=== PATIENT | male | born 1995 | race Caucasian/White ===

== ENCOUNTER 2016-09-02 14:23 | Emergency (ER) | payer OTHER ==
[~2016-09-02] VITALS: Ht 170.2 cm; Wt 75.2 kg
[~2016-09-02 14:23] MED LIST: ACET325T33 PO; DICY10CA60 PO; IBUP400T22 PO; ONDA4TAB8 PO
[2016-09-02 14:26] VITALS: Ht 170.2 cm; Wt 75.2 kg
[2016-09-02] MEDS ORDERED: SOD CHLORIDE 0.9% 1,000 ML IV STA (14:46)
--- NOTE | 2016-09-02 14:55 | ERD ---
ER Documentation Chief Complaint Date/Time DATE: 09/02/16 TIME: 14:54 Chief Complaint Fainted x 2 hours ago HPI Patient is a 21-year-old male with a past medical history of anxiety and depression who presents to the ED with syncopal episode at 6 AM this morning. Patient states that at 6 AM he stood up and felt dizzy and passed out. He denies hitting his head or any trauma. He denies headache or dizziness. He states that he had a panic attack 3 days ago but was feeling fine. Denies fever or chills. Denies recent URI symptoms. Denies chest pain or cough or shortness of breath. Denies leg pain or leg swelling. Denies recent surgery or recent travel. Also complains of multiple bug bites on his arms and abdomen and back states that they are itchy but not painful. Denies drainage from the site. ROS All systems reviewed and are negative except as per history of present illness. Medications Home Meds Active Scripts Hydrocortisone* Topical (Hydrocortisone* Topical) 2.5%-28.3 Gm Cream..g., 1 APPLIC TOP BID, #2 TUB Prov:JAMI CHASE PA-C 09/02/16 Acetaminophen* (Tylophen*) 500 Mg Capsule, 1 CAP PO Q6H Y for PAIN AND OR ELEVATED TEMP, #20 CAP Prov:JAMI CHASE PA-C 09/02/16 Ibuprofen* (Ibuprofen*) 400 Mg Tablet, 400 MG PO TID, #20 TAB Prov:SHASHI ANDERSON 07/24/15 Ondansetron Hcl* (Zofran*) 4 Mg Tablet, 4 MG PO Q8H Y for NAUSEA AND/OR VOMITING , #30 TAB Prov:SHAKILA GOMEZ NP 12/31/14 Ibuprofen* (Motrin*) 400 Mg Tab, 400 MG PO Q6H Y for PAIN AND OR ELEVATED TEMP, #30 Prov:SHAKILA GOMEZ NP 12/31/14 Dicyclomine Hcl* (Bentyl*) 10 Mg Capsule, 10 MG PO QID, #30 CAP Prov:SHAKILA GOMEZ NP 12/31/14 Acetaminophen* (Tylenol*) 325 Mg Tablet, 2 TAB PO Q6 Y for PAIN AND OR ELEVATED TEMP, #20 TAB Prov:AJ CABELLO 12/05/14 Reported Medications [none] Unknown Strength No Conflict Check 12/31/14 Allergies Allergies: Coded Allergies: No Known Allergy (Unverified , 09/02/16) PMhx/Soc Medical and Surgical Hx: pt denies Surgical Hx History of Surgery: No Anesthesia Reaction: No Hx Neurological Disorder: No Hx Respiratory Disorders: No Hx Cardiac Disorders: No Hx Psychiatric Problems: Yes (Anxiety) Hx Miscellaneous Medical Probl: No Hx Alcohol Use: No Hx Substance Use: No Hx Tobacco Use: Yes (He vapes) Smoking Status: Current every day smoker FmHx Family History: No coronary disease, No diabetes, No other Physical Exam Vitals Vital Signs Date Time Temp Pulse Resp B/P Pulse Ox O2 Delivery O2 Flow Rate FiO2 09/02/16 14:26 98.2 98 20 121/73 99 Physical Exam GENERAL: Well-developed, well-nourished male. Appears in no acute distress. Smiling and cheerful. HEAD: Normocephalic, atraumatic. EYES: Pupils are equally reactive bilaterally. EOMs grossly intact. No conjunctival erythema. ENT: Moist mucous membranes. No uvula deviation. No kissing tonsils. No exudates. No hemotympanum. NECK: Supple. No lymphadenopathy or thyromegaly. No meningismus. negative kernig. negative brudinski. LUNG: Clear to auscultation bilaterally. No rhonchi, wheezing, rales or coarse breath sounds. HEART: Regular rate and rhythm. No murmurs, rubs or gallops. ABDOMEN: No scars, ecchymosis or rashes noted. Soft, nontender, and nondistended. Positive bowel sounds in all four quadrants. No rebound tenderness , no guarding. (-) McBurneys point tenderness. No CVA tenderness. BACK: No midline tenderness. Extremities: Equal pulses bilaterally. No peripheral clubbing, cyanosis or edema. No unilateral leg swelling. NEUROLOGIC: Alert and oriented. Moving all four extremities. 5/5 strength in all extremities. Normal speech. Steady gait. Cranial nerves II through XII intact. No ataxia. Negative Romberg test. SKIN: Normal color. Warm and dry. No rashes or lesions. Capillary refill < 2 seconds Result Diagram: 09/02/16 1519 09/02/16 1519 Results 24 hrs Laboratory Tests Test 09/02/16 15:19 09/02/16 16:44 White Blood Count 6.910^3/ul Red Blood Count 4.9210^6/ul Hemoglobin 14.2g/dl Hematocrit 41.1% Mean Corpuscular Volume 83.5fl Mean Corpuscular Hemoglobin 28.9pg Mean Corpuscular Hemoglobin Concent 34.5g/dl Red Cell Distribution Width 12.5% Platelet Count 09078^3/UL Mean Platelet Volume 11.2fl Neutrophils % 57.6% Lymphocytes % 24.9% Monocytes % 11.1% Eosinophils % 5.2% Basophils % 0.6% Nucleated Red Blood Cells % 0.0/100WBC Neutrophils # 4.010^3/ul Lymphocytes # 1.710^3/ul Monocytes # 0.810^3/ul Eosinophils # 0.410^3/ul Basophils # 0.010^3/ul Nucleated Red Blood Cells # 0.010^3/ul Sodium Level 140mmol/L Potassium Level 3.4mmol/L Chloride Level 100mmol/L Carbon Dioxide Level 29mmol/L Anion Gap 14 Blood Urea Nitrogen 8mg/dl Creatinine 0.80mg/dl Glucose Level 114mg/dl Calcium Level 9.4mg/dl Total Bilirubin 0.2mg/dl Direct Bilirubin 0.00mg/dl Indirect Bilirubin 0.2mg/dl Aspartate Amino Transf (AST/SGOT) 39IU/L Alanine Aminotransferase (ALT/SGPT) 68IU/L Alkaline Phosphatase 51IU/L Total Protein 8.1g/dl Albumin 5.1g/dl Globulin 3.00g/dl Albumin/Globulin Ratio 1.70 Bedside Urine pH (LAB) 7.0 Bedside Urine Protein (LAB) Trace Bedside Urine Glucose (UA) Negative Bedside Urine Ketones (LAB) Negative Bedside Urine Blood Trace-intact Bedside Urine Nitrite (LAB) Negative Bedside Urine Leukocyte Esterase (L Negative Current Medications Medications (Trade) Dose Ordered Sig/Jeffery Route PRN Reason Start Time Stop Time Status Last Admin Dose Admin Sodium Chloride (NS) 1,000 ml @ 1,000 mls/hr Q1H STAT IV 09/02/16 14:46 09/02/16 15:45 DC 09/02/16 15:52 Acetaminophen 650 mg 650 mg ONCE ONCE PO 09/02/16 17:00 09/02/16 17:01 DC 09/02/16 17:02 Sodium Chloride (NS) 500 ml @ 500 mls/hr Q1H ONCE IV 09/02/16 17:00 09/02/16 17:59 09/02/16 16:59 Procedures/MDM ER COURSE: I kept the patient and/or family informed of laboratory and diagnostic imaging results throughout the emergency room course. EKG, MONITORS, & DIAGNOSTIC IMAGING: EKG performed, read by Dr Mcgee 75 bpm, normal sinus rhythm with sinus arrhythmia,, normal axis, no acute ST segment changes, no T wave inversion MEDICATIONS: Patient was given Tylenol, Zofran. Tolerated well with no adverse reaction. Fluids were also given. Tolerated well LAB INTERPRETATION: CBC showed no evidence of systemic infection or severe anemia. CMP showed no evidence of electrolyte abnormalities, severe acidosis, alkalosis, renal failure , or liver disease. Lipase showed no evidence of acute pancreatitis. UA showed no evidence of leukocytes, nitrites or hematuria. MEDICAL DECISION MAKING: This is a 21-year-old male who presents with syncopal episode at 6 AM today. Vital signs were reviewed. Patient is afebrile. Patient is not hypoxic. Patient is not toxic or ill-appearing. Patient's CBC and CMP was within normal limits and I have low suspicion for dehydration. Patient did not have any trauma and at this point I do not think a CT brain is necessary at this time or further imaging studies. Risk versus benefits were discussed with patient and patient does not want any further imaging. Patient stated improvement in symptoms after fluids were given and Tylenol. She denies suicidal or homicidal ideations. I advised patient to continue following up with his psychiatrist for proper management of his panic attacks. Patient was smiling and cheerful in the room and was not toxic or ill appearing. Low suspicion for intracranial hemorrhage, meningitis, intracranial mass, concussion, temporal arteritis, stroke, elevated intracranial pressure, seizure. Low suspicion for ACS, PE, AAA , dissection, DVT. Patient's rash are likely bug bites in etiology. Low suspicion for necrotizing fasciitis, SJS, toxic epidermal necrolysis, Kawasaki, erythema multiforme, gangrene, scarlet fever, meningococcemia, sepsis, anaphylaxis, sepsis, deep space infection, or foreign body. DISCHARGE: At this time, patient is stable for discharge and outpatient management with no new complaints during the ER course. Patient was sent home with hydrocortisone cream and Tylenol. Patient will be discharged home with instructions to recheck for new or worsening symptoms such as fever, nausea, weakness, LOC and to follow up with primary care in the next 1-2 days. Patient was advised to return to the ER for any new or worsening symptoms. Plan was discussed and patient and/ or family understands and agrees. Home instructions were given. Departure Diagnosis: Primary Impression: Faint Syncope type: unspecified Qualified Code: R55 - Syncope, unspecified syncope type Condition: Stable JAMI CHASE PA-C Sep 02, 2016 14:55
[2016-09-02 15:31] LABS: ADD SCAN DIFF NO
[2016-09-02 15:33] LABS: BASOPHILS % 0.6 % (0.0-2.0); EOSINOPHILS # 0.4 10^3/ul (0.0-0.5); EOSINOPHILS % 5.2 % (0.0-7.0); HEMATOCRIT 41.1 % (42.0-52.0); HEMOGLOBIN 14.2 g/dl (14.0-18.0); LYMPHOCYTES # 1.7 10^3/ul (0.8-2.9); LYMPHOCYTES % 24.9 % (15.0-51.0); MEAN CORPUSCULAR HEMOGLOBIN 28.9 pg (29.0-33.0); MEAN CORPUSCULAR HGB CONC 34.5 g/dl (32.0-37.0); MEAN CORPUSCULAR VOLUME 83.5 fl (82.0-101.0); MEAN PLATELET VOLUME 11.2 fl (7.4-10.4); MONOCYTE # 0.8 10^3/ul (0.3-0.9); MONOCYTES % 11.1 % (0.0-11.0); NEUTROPHILS % 57.6 % (39.0-77.0); PLATELET COUNT 215 10^3/UL (140-415); RED BLOOD COUNT 4.92 10^6/ul (4.70-6.10); RED CELL DISTRIBUTION WIDTH 12.5 % (11.5-14.5); WHITE BLOOD COUNT 6.9 10^3/ul (4.8-10.8)
[2016-09-02 15:51] LABS: ALBUMIN 5.1 g/dl (3.3-4.9); ALBUMIN/GLOBULIN RATIO 1.7; BILIRUBIN,INDIRECT 0.2 mg/dl (0-1.1); BILIRUBIN,TOTAL 0.2 mg/dl (0.2-1.3); CALCIUM 9.4 mg/dl (8.4-10.2); CREATININE 0.8 mg/dl (0.61-1.24); POTASSIUM 3.4 mmol/L (3.5-5.1); TOTAL PROTEIN 8.1 g/dl (6.1-8.1)
[2016-09-02 16:40] LABS: URINE BLOOD (Dip) POC Trace-intact (NEGATIVE)
[2016-09-02] MEDS ORDERED: SOD CHLORIDE 0.9% 500 ML IV ONE (17:00)
[2016-09-02] MEDS ORDERED: ACETAMINOPHEN 325 MG TAB PO ONE (17:00)
[2016-09-02] MEDS ORDERED: ACET500C5 PO (17:37)
[2016-09-02] MEDS ORDERED: HC30CR25 TOP (17:37)
== END 2016-09-02 18:19 | disposition home or self-care (01) ==
LOC: FTE 14:23
DX: R55 Syncope and collapse (principal); F17.210 Nicotine dependence, cigarettes, uncomplicated
CPT/HCPCS: 80053; 81003; 85025; 99284; J7030; J7040; 93005

== ENCOUNTER 2018-02-11 09:47 | Emergency (ER) | END 2018-02-11 10:57 | disposition home or self-care (01) ==